=== PATIENT | female | born 1975 | race American Indian/Alaskan Native ===

== ENCOUNTER 2019-04-15 16:41 | Emergency (ER) | payer MEDICAID ==
--- NOTE | 2019-04-15 16:49 | Emergency Department Report ---
Blank Doc - Documentation Documentation: This is a 44-year-old female that presents with right knee pain, lower back pa in, and SOB. This initial assessment/diagnostic orders/clinical plan/treatment(s) is/are subject to change based on patient's health status, clinical progression and re- assessment by fellow clinical providers in the ED. Further treatment and workup at subsequent clinical providers discretion. Patient/guardians urged not to elope from the ED as their condition may be serious if not clinically assessed and managed. Initial orders include: 1- Patient sent to [facility] for further evaluation and treatment 2- labs 3- EKG 4- CXR
--- NOTE | 2019-04-15 17:45 | XRay Report ---
CHEST 2 VIEWS INDICATION / CLINICAL INFORMATION: Dyspnea. COMPARISON: 11/27/2008. FINDINGS: SUPPORT DEVICES: None. HEART / MEDIASTINUM: No significant abnormality. LUNGS / PLEURA: No significant pulmonary or pleural abnormality. No pneumothorax. ADDITIONAL FINDINGS: No significant additional findings. IMPRESSION: 1. No acute findings. Signer Name: Darius Senior MD Signed: 04/15/2019 5:41 PM Workstation Name: [id number]
[2019-04-15 17:57] LABS: Basophils % (Auto) 0.4 % (0.0-1.8); Eosinophils # (Auto) 0.1 K/mm3 (0.0-0.4); Eosinophils % (Auto) 1.5 % (0.0-4.3); Hematocrit 37.4 % (30.3-42.9); Lymphocytes # (Auto) 1.1 K/mm3 (1.2-5.4); Lymphocytes % (Auto) 29.8 % (13.4-35.0); Mean Corpuscular HGB Conc 32 % (30-34); Mean Corpuscular Volume 85 fl (79-97); Monocytes # (Auto) 0.4 K/mm3 (0.0-0.8); Monocytes % (Auto) 11.3 % (0.0-7.3); Platelet Count 178 K/mm3 (140-440); Red Blood Count 4.41 M/mm3 (3.65-5.03); Red Cell Distribution Width 16.3 % (13.2-15.2)
[2019-04-15 18:07] LABS: INR 1.04 (0.87-1.13)
[2019-04-15 18:13] LABS: BUN/Creatinine Ratio 16; Blood Urea Nitrogen 11 mg/dL (7-17); Calcium 9.4 mg/dL (8.4-10.2); Hemolysis Index 2
--- NOTE | 2019-04-15 20:13 | Emergency Department Report ---
ED Shortness of Breath HPI - General Chief Complaint: Dyspnea/Respdistress Stated Complaint: BACK/LOWER STOMACH PAIN Time Seen by Provider: 04/15/19 16:47 Source: patient Mode of arrival: Ambulatory Limitations: No Limitations - History of Present Illness Initial Comments: 44-year-old -[place] female comes in complaining of right knee pain and back pain with shortness of breathing in the middle of her back inspiration. Patient denies any recent trauma denies taking control denies any cancers. Patient reports that her back pain is worse when she bends or twists. Patient reports that her right knee swelling and having pain. 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 Patient has no past medical history currently takes no medications on a daily basis has no known drug allergies and denies any trauma. Onset/Timin -: week(s) - Related Data Previous Rx's Medication Instructions Recorded Last Taken Type Azithromycin [Zithromax Z-YAA] 250 mg PO DAILY #6 tab 06/02/16 Unknown Rx predniSONE [Deltasone] 1 tab PO BID #8 tablet 06/02/16 Unknown Rx Ibuprofen [Motrin 800 MG tab] 800 mg PO TID PRN #25 tablet 04/15/19 Unknown Rx Allergies Allergy/AdvReac Type Severity Reaction Status Date / Time No Known Allergies Allergy Verified 06/02/16 10:04 ED Review of Systems ROS: Stated complaint: BACK/LOWER STOMACH PAIN Other details as noted in HPI ED Past Medical Hx - Past Medical History Previous Medical History?: No - Surgical History Past Surgical History?: Yes Additional Surgical History: 3 c-sections - Social History Smoking Status: Never Smoker Substance Use Type: None - Medications Home Medications: Home Medications Medication Instructions Recorded Confirmed Last Taken Type Azithromycin [Zithromax Z-YAA] 250 mg PO DAILY #6 tab 06/02/16 Unknown Rx predniSONE [Deltasone] 1 tab PO BID #8 tablet 06/02/16 Unknown Rx Ibuprofen [Motrin 800 MG tab] 800 mg PO TID PRN #25 tablet 04/15/19 Unknown Rx ED Physical Exam - General Limitations: No Limitations General appearance: alert, in no apparent distress - Head Head exam: Present: atraumatic, normocephalic - Eye Eye exam: Present: normal appearance - ENT ENT exam: Present: mucous membranes moist - Neck Neck exam: Present: normal inspection - Cardiovascular Cardiovascular Exam: Present: regular rate, normal rhythm. Absent: systolic murmur, diastolic murmur, rubs, gallop - GI/Abdominal GI/Abdominal exam: Present: soft, normal bowel sounds - Extremities Exam Extremities exam: Present: normal inspection - Back Exam Back exam: Present: normal inspection - Neurological Exam Neurological exam: Present: alert, oriented X3 - Psychiatric Psychiatric exam: Present: normal affect, normal mood - Skin Skin exam: Present: warm, dry, intact, normal color. Absent: rash ED Course Vital Signs 04/15/19 04/15/19 16:48 22:01 Temperature 98.4 F Pulse Rate 80 72 Respiratory 16 16 Rate Blood Pressure 142/94 Blood Pressure 152/80 [Right] O2 Sat by Pulse 99 100 Oximetry ED Medical Decision Making - Lab Data Result diagrams: 04/15/19 17:38 04/15/19 17:44 Laboratory Tests 04/15/19 04/15/19 04/15/19 17:38 17:43 17:44 WBC 3.7 L RBC 4.41 Hgb 12.0 Hct 37.4 MCV 85 MCH 27 L MCHC 32 RDW 16.3 H Plt Count 178 Lymph % (Auto) 29.8 [place] % (Auto) 11.3 H Eos % (Auto) 1.5 Baso % (Auto) 0.4 Lymph # 1.1 L [place] # 0.4 Eos # 0.1 Baso # 0.0 Seg Neutrophils % 57.0 Seg Neutrophils # 2.1 PT 13.3 INR 1.04 APTT 26.0 Sodium 142 Potassium 4.0 Chloride 106.4 Carbon Dioxide 29 Anion Gap 11 BUN 11 Creatinine 0.7 Estimated GFR > 60 BUN/Creatinine Ratio 16 Glucose 89 Calcium 9.4 Troponin T < 0.010 Urine Bilirubin Urine RBC (Auto) U Epithel Cells (Auto) 04/15/19 20:20 WBC RBC Hgb Hct MCV MCH MCHC RDW Plt Count Lymph % (Auto) [place] % (Auto) Eos % (Auto) Baso % (Auto) Lymph # [place] # Eos # Baso # Seg Neutrophils % Seg Neutrophils # PT INR APTT Sodium Potassium Chloride Carbon Dioxide Anion Gap BUN Creatinine Estimated GFR BUN/Creatinine Ratio Glucose Calcium Troponin T Urine Bilirubin Neg Urine RBC (Auto) 2.0 U Epithel Cells (Auto) 7.0 - EKG Data EKG shows normal: sinus rhythm Rate: normal - Radiology Data Radiology results: report reviewed Patient: ERIK MAN MR#: [id number] : 1975 Acct:[id number] Age/Sex: 44 / F ADM Date: 04/15/19 Loc: ED Attending Dr: Ordering Physician: KECIA CEBALLOS NP Date of Service: 04/15/19 Procedure(s): XR chest routine 2V Accession Number(s): [id number] cc: KECIA CEBALLOS NP Fluoro Time In Minutes: CHEST 2 VIEWS INDICATION / CLINICAL INFORMATION: Dyspnea. COMPARISON: 11/27/2008. FINDINGS: SUPPORT DEVICES: None. HEART / MEDIASTINUM: No significant abnormality. LUNGS / PLEURA: No significant pulmonary or pleural abnormality. No pneumothorax. ADDITIONAL FINDINGS: No significant additional findings. IMPRESSION: 1. No acute findings. Signer Name: Darius Senior MD Signed: 04/15/2019 5:41 PM Workstation Name: [id number] Transcribed By: LEOLA Dictated By: Darius Senior MD Electronically Authenticated By: Darius Senior MD Signed Date/Time: 04/15/191740 DD/ 39 TD/TT: - Medical Decision Making 44-year-old -[place] female comes in complaining of right knee pain and back pain with shortness of breathing in the middle of her back inspiration. Patient denies any recent trauma denies taking control denies any cancers. Patient reports that her back pain is worse when she bends or twists. Patient reports that her right knee swelling and having pain. 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 Patient has no past medical history currently takes no medications on a daily basis has no known drug allergies and denies any trauma. Chest x-ray and EKG ordered shows normal Critical care attestation.: If time is entered above; I have spent that time in minutes in the direct care of this critically ill patient, excluding procedure time. ED Disposition Clinical Impression: Back pain Qualifiers: Back pain location: low back pain Back pain laterality: right Sciatica presence: without sciatica Knee pain, acute Qualifiers: Laterality: right Qualified Code(s): M25.561 - Pain in right knee Disposition: DC-01 TO HOME OR SELFCARE Is pt being admited?: No Does the pt Need Aspirin: No Condition: Stable Instructions: Low Back Strain (ED), Arthralgia (ED) Additional Instructions: X-ray of chest shows no acute abnormalities. Urinalysis is negative for any acute infections. Labs are stable. Please take pain medication and follow-up with the primary care provider if his symptoms persist or gets worse. Prescriptions: Ibuprofen [Motrin 800 MG tab] 800 mg PO TID PRN #25 tablet PRN Reason: Pain Referrals: NADIA ENNISBEREA MD CANDACE [Primary Care Provider] - 3-5 Days Forms: Work/School Release Form(ED)
[2019-04-15 20:42] LABS: Bilirubin,Urine NEG (Negative); Blood,Urine NEG (Negative); Color,Urine Yellow (Yellow); Mucus,Urine FEW /HPF; Protein,Urine <15 mg/dL mg/dL (Negative); Urobilinogen,Urine < 2.0 mg/dL (<2.0); WBC,Urine < 1.0 /HPF (0.0-6.0)
[2019-04-15 22:03] VITALS: BP 152/80
== END 2019-04-15 22:01 | disposition home or self-care (01) ==
LOC: ED 16:41
DX: M25.561 Pain in right knee (principal); M54.9 Dorsalgia, unspecified; Z79.1 Long term (current) use of non-steroidal anti-inflammatories (NSAID)
CPT/HCPCS: 36415; 71046; 80048; 81001; 84484; 85025; 85610; 85730; 93005; 93010; 99284